=== PATIENT | female | born 2000 | race Hispanic/Latino ===

== ENCOUNTER 2019-11-17 14:15 | Inpatient (IN) | payer OTHER ==
[~2019-11-17] VITALS: Ht 162.6 cm; Wt 93.6 kg
[2019-11-17] VITALS (7 sets, daily range): BP systolic 107–120; BP diastolic 55–70
[2019-11-17 17:00] LABS: HEMATOCRIT 34.1 % (36.0-47.0); HEMOGLOBIN 11.6 g/dl (12.0-15.5); MEAN CORPUSCULAR VOLUME 88.1 fl (80.0-96.0); PLATELET COUNT, AUTOMATED 222 10^3/uL (150-450); RED BLOOD COUNT 3.87 10^6/uL (4.00-5.40); WHITE BLOOD COUNT 11.9 10^3/uL (4.0-10.0)
--- NOTE | 2019-11-17 18:22 | HPEPDOC ---
Obstetrical History & Physical General Date of Admission Nov 17, 2019 at 15:41 History of Present Illness 19-year-old 1 at 30 weeks 4 days estimated gestational age, presents with complaints of leakage fluid that occurred approximately at 10:30 this morning. She reports contractions started shortly after that of increasing intensity and frequency. She denies any vaginal bleeding, reports active movement. 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 BREAST: . ABDOMEN: Gravid and non-tender to touch. FETUS: Is vertex (VTX) by sterile vaginal examination (SVE), fetus is vertex (VTX) by Jon. HEART RATE: Regular rate and rhythm. LUNGS: Clear to auscultation (CTA). Vital Signs/I&O Vital Signs Date Time Temp Pulse Resp B/P (MAP) Pulse Ox O2 Delivery O2 Flow Rate FiO2 11/17/19 17:08 81 16 115/55 (75) 11/17/19 14:41 97.8 Laboratory Data 24H LABS Laboratory Tests 2 11/17/19 15:44: Serology Scanned Report Hepatitis B Testing 11/17/19 16:47: Nucleated Red Blood Cells % (auto) 0.0, Syphilis Serology NONREACTIVE CBC/BMP Laboratory Tests 11/17/19 16:47 Pertinent Laboratoy Data Blood Type: A+ RBC Antibody Screen: Negative HIV: Negative Hepatitis B: Negative Rapid Plasma Reagin: Nonreactive Rubella: Immune Chlamydia/Gonorrhea: Negative Group B Streptococcus: Negative Glucose Tolerance Test: 105 Anatomy Ultrasound Ultrasound Date: Jul 08, 2019 Placenta Location: Anterior Normal Anatomy: Yes Placenta Previa: No Vaginal Examination Dilation: 1cm (grossly ruptured) Effacement: 50% Station: -3 Cervical Position: Posterior Assessment Variability: Moderate Accelerations: Positive Tocometer Contractions: Yes Frequency: regular Assessment/Plan Assessment 19-year-old 1 at 38 weeks 4 days estimated gestational age, spontaneous rupture of clear fluid Reassuring status. Admit to labor and delivery, CBC, RPR, type and screen preeclamptic panel. Patient thoroughly counseled regards, induction of labor. Discussed medication as well as procedures performed labor and delivery. She is also been verbally consented for emergency surgery, blood products anesthesia desires to proceed with admission. Plan Admit and orient. Certified Alcohol Counselor and consent. Diet: Regular. Group B Streptococcus (GBS) negative. Labs and intravenous (IV) per unit protocol. Counseled on Pitocin and induction of labor (IOL). Anticipate normal spontaneous delivery (). C-S as appropriate. PATO HARE MD. Nov 17, 2019 18:22
[2019-11-17] MEDS ORDERED: [UNRECOGNIZED DRUG - OTHER] PO (18:27)
[2019-11-17] MEDS ORDERED: PRENTAB9 PO (18:27)
[2019-11-18] VITALS (35 sets, daily range): BP systolic 95–148; BP diastolic 50–101
[2019-11-18] MEDS ORDERED: LR 1,000 ML IV SCH (00:05)
[2019-11-18] MEDS ORDERED: OXYTOCIN DRIP 30 UNITS in IV 1 EA IV SCH ×2 (00:15→07:04)
[2019-11-18] MEDS ORDERED: FENTANYL 2MCG/ML ROPIVACAINE 0.2% IN 0.9% NACL 100ML IVBAG As Ordered ONE (00:51)
[2019-11-18] MEDS ORDERED: REFRIGERATOR IV KEYS XX PRN (01:52)
[2019-11-18] MEDS ORDERED: NALOXONE INJ 0.4MG/1ML VIAL (J2310 PER 1MG) IV PRN (01:52)
[2019-11-18] MEDS ORDERED: ePHEDrine SULFATE 25 MG/5 ML(5MG/ML) SYRINGE IV PRN (01:52)
[2019-11-18] MEDS ORDERED: LACTATED RINGER'S 1000 ML IV PRN (01:52)
[2019-11-18] MEDS ORDERED: diphenhydrAMINE 50MG/ML VIAL (J1200) IV PRN (01:52)
[2019-11-18] MEDS ORDERED: EPIDURAL COMMENT XX SCH (01:52)
[2019-11-18] MEDS ORDERED: FENTANYL/ROPIVACAINE/NACL BAG 100 ML EPIDURAL SCH (01:52)
[2019-11-18] MEDS ORDERED: EPIDURAL/PCA KEYS XX PRN (01:52)
[2019-11-18] MEDS ORDERED: ONDANSETRON 4MG/2ML VIAL IV PRN (01:52)
--- NOTE | 2019-11-18 07:02 | DNPDOC ---
[facility] Delivery Note Delivery Note DATE OF DELIVERY: 11/18/2019 TIME OF : 0633 GENDER: Female. APGARS:, 9 and 9. WEIGHT:, 2800 grams or 6 pounds 3 ounces. LACERATIONS:. None ANESTHESIA: Epidural. ESTIMATED BLOOD LOSS: 300ml COUNTS: 5 laparotomy sponges accounted for prior to after delivery. . DELIVERY NOTE: On 11/18/2019 at 0633, Mrs. kim a 19-year-old 1, now para 1, had a spontaneous vaginal delivery of viable female , Apgars, 9 an d 9. Weight was 2800 g or 6 lbs. 3 oz. Head was delivered occiput anterior (OA), followed by delivery of the shoulders and corpus. Infant was handed to mom with a good cry. Cord was clamped times two and was cut by the father of baby under my direction. Placenta was then drained and delivered grossly intact. A premixed bag of 500 mL of normal saline with 30 units of Pitocin was then bolused along with uterine massage until the uterus was firm. On inspection,. On inspection, cervix, vagina, perineum was grossly intact and hemostatic. Mom and baby in recovery on stable condition. The couples decided to remain in daughter PATO Orozco MD. Nov 18, 2019 07:02
[2019-11-18] MEDS ORDERED: MEASLES,MUMPS,RUBELLA VACCINE INJ (MMR-II) (90707) SC SCH (07:15)
[2019-11-18] MEDS ORDERED: DIBUCAINE 1% OINTMENT 30GM TOP PRN (07:15)
[2019-11-18] MEDS ORDERED: MOM 30ML SUSPENSION UDC PO PRN (07:15)
[2019-11-18] MEDS ORDERED: DOCUSATE SODIUM 100MG CAPSULE PO PRN (07:15)
[2019-11-18] MEDS ORDERED: ANUSOL HC CREAM 30GM TOP PRN (07:15)
[2019-11-18] MEDS ORDERED: IBUPROFEN 600MG TAB PO PRN (07:15)
[2019-11-18] MEDS ORDERED: RHOGAM 300 MCG (1500 IU) INJ (J2790) IM SCH (07:15)
[2019-11-18] MEDS ORDERED: ACETAMINOPHEN 500 MG TAB PO PRN (07:15)
[2019-11-18] MEDS ORDERED: METHYLERGONOVINE MALEATE 0.2 MG TAB PO PRN (07:15)
[2019-11-18] MEDS ORDERED: ACETAMINOPHEN TAB 650MG DOSE (2X325MG) PO PRN (07:15)
[2019-11-18] MEDS: PRENATAL VITAMINS CHEWABLE TABLET PO SCH (08:24)
[2019-11-18] MEDS: IBUPROFEN 800 MG TAB PO PRN ×2 (09:48→18:41)
[2019-11-19] MEDS: IBUPROFEN 800 MG TAB PO PRN ×2 (02:58→17:50)
[2019-11-19 06:00] VITALS: BP 114/55
--- NOTE | 2019-11-19 08:05 | IPNPDOC ---
Progress Note Date of Service: Nov 19, 2019 Day#: 1 Progress Note SUBJECT:patient is a 19yo S/P ppd #1. She has been ambulating, voiding spontaneously without issue and tolerating regular diet. Breast feeding without issue. Reports lochia is like a normal period. OBJECTIVE: VITAL SIGNS: Within normal limits, afebrile. Alert and oriented times three. Abdomen: Fundus firm at U-2. Soft, NTTP. LE: no edema/erythema/tenderness A/P ppd #1, doing well. routine ppc. d/c ppd #2. Le, DO VS, I&O, 24H, Fishbone Vital Signs/I&O Vital Signs Date Time Temp Pulse Resp B/P (MAP) Pulse Ox O2 Delivery O2 Flow Rate FiO2 11/19/19 06:00 98.1 83 18 114/55 (74) 11/18/19 18:00 97 Room Air I&O- Last 24 Hours up to 6 AM 11/19/19 06:00 Intake Total 5600 ml Output Total 1650 ml Balance 3950 ml MESERET ORDONEZ DO Nov 19, 2019 08:05
[2019-11-19] MEDS: PRENATAL VITAMINS CHEWABLE TABLET PO SCH (08:19)
[2019-11-19 18:00] VITALS: BP 117/59
[2019-11-20 06:00] VITALS: BP 118/61
--- NOTE | 2019-11-20 06:59 | IPNPDOC ---
Progress Note Date of Service: Nov 20, 2019 Day#: 2 Progress Note SUBJECT: Patient is a 19 yo s/p ppd #2. She has been ambulating, voi ding spontaneously without issue and tolerating regular diet. Breast feeding without issue. Reports lochia is like a normal period. Undecided on contraceptive. OBJECTIVE: VITAL SIGNS: Within normal limits, afebrile. Alert and oriented times three. Abdomen: Fundus firm at U-2. Soft, NTTP. LE: no edema/erythema/tenderness A/P ppd #2, doing well. discussed contraceptive options. encourage bf. d/c home today. VS, I&O, 24H, Fishbone Vital Signs/I&O Vital Signs Date Time Temp Pulse Resp B/P (MAP) Pulse Ox O2 Delivery O2 Flow Rate FiO2 11/20/19 06:00 99.3 81 18 118/61 (80) 11/19/19 18:00 97 Room Air MESERET ORDONEZ DO Nov 20, 2019 06:59
--- NOTE | 2019-11-20 06:59 | OBDS ---
[facility] Obstetrical Discharge Sum. Obstetrical Discharge Summary : 4 Term: 1 Pre-term: 0 Abortions: 0 Livin VDRL: Non-Reactive Rh: Positive Rubella: Immune Infant Sex: Female Infant Weight: grams (2800) Anesthesia: Regional Anesthesia A/P, Post Course List any complications Admission diagnosis: spontaneous ruptured of membranes at 38+3wks Discharge diagnosis: Condition at Discharge: stable Discharge Instructions: Home Activity: as tolerated, pelvic rest for 6wks Diet: regular Medications: filled at [facility] Follow-up: call OB clinic for 6-8wks Hospital course: Patient admitted for spontaneous rupture of membranes at term. Progressed to having spontaneous vaginal delivery. course uncomplicated. Patient discharged on day #2. MESERET ORDONEZ DO Nov 20, 2019 00:27
[2019-11-20] MEDS: PRENATAL VITAMINS CHEWABLE TABLET PO SCH (09:32)
[2019-11-20] MEDS: IBUPROFEN 800 MG TAB PO PRN (14:09)
== END 2019-11-20 14:10 | disposition home or self-care (01) | DRG 807 ==
LOC: M LDO 14:15 → M LDI 15:41 → M OBS 11-18 13:12
PROVIDERS: ADMIT Obstetrics & Gynecology; ATTEND Obstetrics & Gynecology
PROC: 10E0XZZ Delivery of Products of Conception, External Approach (ICD-10-PCS; principal; 2019-11-18)
DX: O80 Encounter for full-term uncomplicated delivery (principal); Z37.0 Single live birth; Z3A.38 38 weeks gestation of pregnancy